=== PATIENT | female | born 1995 | race Caucasian/White ===

== ENCOUNTER 2018-10-06 08:08 | Inpatient (IN) ==
[2018-10-06] MEDS ORDERED: Mag Hydrox/Al Hydrox/Simeth 30 ML UDC PO PRN (08:18)
[2018-10-06] MEDS ORDERED: MOM Conc 10 ML UD.LIQ PO PRN (08:18)
[2018-10-06] MEDS ORDERED: *HR* LORazepam 1 MG TABLET PO PRN (08:18)
[2018-10-06] MEDS ORDERED: Ibuprofen 400 MG TABLET PO PRN (08:18)
[2018-10-06] MEDS ORDERED: Haloperidol Lactate 5 MG/ML VIAL IM PRN (08:18)
[2018-10-06] MEDS ORDERED: *HR* LORazepam 2 MG/ML VIAL IM PRN (08:18)
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
[2018-10-06] MEDS: Lurasidone 20 MG TABLET PO SCH (17:05)
--- NOTE | 2018-10-07 11:38 | Psychiatry Progress Note ---
Date of Encounter: 10/07/18 Time of Encounter: 11:36 Subjective Interval history: Patient reports that his mood was a little shaky last night. He said that he is worried about going back to his mother's house. He also continues to be upset when his ex contact him. He denies suicidal ideation but is still hopeless at times. Is tolerating the medications. Is attending groups. Review of Systems Psychiatric: Reports: depression, abnormal sleep pattern, anhedonia, hopelessness, mood swings. Denies: anxiety, suicidal ideation, change in appetite, homicidal ideation, auditory hallucinations, visual hallucinations, confusion, memory loss, difficulty concentrating, irritability, panic attacks Results - Vital Signs Vital Signs: Temp Pulse Resp BP Pulse Ox 98.1 F 95 18 126/78 95 10/07/18 09:00 10/07/18 09:00 10/07/18 09:00 10/07/18 09:00 10/07/18 09:00 Assessment and Plan (1) Bipolar disorder current episode depressed Current visit: Yes Status: Acute Plan: Continue hospitalization, Close observation, Suicide Precautions per unit protocol, Encourage participation in unit milieu, Group Therapy, Monitor sleep, Monitor appetite Additional Plan: Current medications. Consider increase to 2 to tomorrow. Encourage continued group attendance. Therapist working on outpatient placement. Risks, benefits, side effects, alternatives discussed w/pt: Yes Patient agreeable to treatment: Yes Qualifiers: Current episode severity: severe Psychotic features: without psychotic features Qualified Code(s): F31.4 - Bipolar disorder, current episode depressed, severe, without psychotic features Consult Discharge Plan - Plan Referrals: En Reinoso [facility] [Outside] - 10/27/18 1:30 pm (Your appointment with your counselor Magdalene Coon has been cancelled per your request - please contact the office at the number above as soon as possible after you know your work schedule to reschedule this appointment. You have an appointment scheduled with Rodrigo Campbell on FridayOctober 27 at 1:30 PM for Medication Management. ) Psychiatry Exam - Constitutional Vitals: Temp Pulse Resp BP Pulse Ox 98.1 F 95 18 126/78 95 10/07/18 09:00 10/07/18 09:00 10/07/18 09:00 10/07/18 09:00 10/07/18 09:00 General appearance: age & developmentally appropriate - Musculoskeletal Gait: normal Station: relaxed Strength & Tone: normal for patient - Psychiatric Patient Orientation: Yes Person, Yes Time, Yes Place Level of alertness: Alert Behavior: calm, cooperative Psychomotor activity: Normal Eye Contact: Maintains Eye Contact Mood Description: Depressed Patient description of mood: "down" Affect description: congruent with mood Speech Volume: Normal Speech pattern: normal rate, normal rhythm, normal tone, fluent, spontaneous Language & Vocabulary: consistent with education Thought Process: Linear, Goal Oriented Thought Content: No Suicidal ideation, No Homicidal ideation, No Overt delusions Perceptual Disturbances: No Auditory hallucinations, No Visual hallucinations Attention Span Ability: Capable of Focused Attention Memory Description: Grossly Intact Patient Reliability: Reliable Historian Fund of knowledge: Yes abstraction ability, Yes aware of current events Intelligence Estimate: Average Judgment: Fair Insight: Partial
[2018-10-07] MEDS: hydrOXYzine pamoate 25 MG CAPSULE PO PRN (14:32)
[2018-10-07] MEDS: Lurasidone 20 MG TABLET PO SCH (17:08)
[2018-10-07] MEDS: traZODone 50 MG TABLET PO PRN (21:44)
--- NOTE | 2018-10-08 07:23 | Psychiatry Progress Note ---
Date of Encounter: 10/08/18 Time of Encounter: 07:21 Subjective Interval history: Patient continues to report depression. He said that he got very anxious yesterday after another call with his ex and needed anxiety medications. He reports that he still feels hopeless and worries that if he were back at home that he might do something to harm himself. He is open to going up on his Latuda. Decreased interest and anhedonia. Review of Systems Cardiovascular: Denies: chest pain, palpitations, dyspnea on exertion Respiratory: Denies: cough, dyspnea, wheezes Psychiatric: Reports: depression, abnormal sleep pattern, suicidal ideation, anhedonia, hopelessness, mood swings. Denies: anxiety, change in appetite, homicidal ideation, auditory hallucinations, visual hallucinations, confusion, memory loss, difficulty concentrating, irritability, panic attacks Results - Vital Signs Vital Signs: Temp Pulse Resp BP Pulse Ox 98.2 F 99 14 117/79 100 10/07/18 21:00 10/07/18 21:00 10/07/18 21:00 10/07/18 21:00 10/07/18 21:00 Assessment and Plan (1) Bipolar disorder current episode depressed Current visit: Yes Status: Acute Plan: Continue hospitalization, Suicide Precautions per unit protocol, Encourage participation in unit milieu, Group Therapy, Monitor sleep, Monitor appetite Additional Plan: Increase Latuda to 40 mg to address depression and mood lability. Continue group attendance. Linked patient with outpatient services. Patient is willing to sign in as a voluntary patient. Risks, benefits, side effects, alternatives discussed w/pt: Yes Patient agreeable to treatment: Yes Qualifiers: Current episode severity: severe Psychotic features: without psychotic features Qualified Code(s): F31.4 - Bipolar disorder, current episode depressed, severe, without psychotic features Consult Discharge Plan - Plan Referrals: En Reinoso [facility] [Outside] - 10/27/18 1:30 pm (Your appointment with your counselor Magdalene Coon has been cancelled per your request - please contact the office at the number above as soon as possible after you know your work schedule to reschedule this appointment. You have an appointment scheduled with Rodrigo Campbell on FridayOctober 27 at 1:30 PM for Medication Management. ) Psychiatry Exam - Constitutional Vitals: Temp Pulse Resp BP Pulse Ox 98.2 F 99 14 117/79 100 10/07/18 21:00 10/07/18 21:00 10/07/18 21:00 10/07/18 21:00 10/07/18 21:00 General appearance: age & developmentally appropriate, disheveled, obese - Musculoskeletal Gait: slow Station: slouched Strength & Tone: normal for patient - Psychiatric Patient Orientation: Yes Person, Yes Time, Yes Place Level of alertness: Alert Behavior: distractible Psychomotor activity: Slowed Eye Contact: Fleeting Contact Mood Description: Depressed Patient description of mood: "anxious" Affect description: dysphoric Speech Volume: Soft/Quiet Speech pattern: slowed Language & Vocabulary: consistent with education Thought Process: Linear, Goal Oriented Thought Content: Yes Suicidal ideation (if were home) Perceptual Disturbances: No Auditory hallucinations, No Visual hallucinations Attention Span Ability: Capable of Focused Attention Memory Description: Grossly Intact Patient Reliability: Reliable Historian Fund of knowledge: Yes abstraction ability, Yes aware of current events Intelligence Estimate: Average Judgment: Limited Insight: Partial
[2018-10-08] MEDS: hydrOXYzine pamoate 25 MG CAPSULE PO PRN (16:11)
[2018-10-08] MEDS: Lurasidone 20 MG TABLET PO SCH (17:33)
[2018-10-08] MEDS: traZODone 50 MG TABLET PO PRN (21:11)
--- NOTE | 2018-10-09 09:13 | Psychiatry Progress Note ---
Date of Encounter: 10/09/18 Time of Encounter: 09:11 Subjective Interval history: Patient tolerated increase in latuda. Has had some diarrhea but does not think it is related as it has been going on since he first arrived on the unit. Reports no suicidal ideation. Is more future oriented toward wanting to move forward with his life. He interacts with patients on the unit. no Psychosis. Review of Systems Constitutional: Denies: fever Neurological: Denies: headache Psychiatric: Reports: depression, anhedonia. Denies: anxiety, change in appetite, homicidal ideation, auditory hallucinations, visual hallucinations, confusion, memory loss, difficulty concentrating, irritability, panic attacks Results - Vital Signs Vital Signs: Temp Pulse Resp BP Pulse Ox 97.5 F L 104 18 114/78 100 10/08/18 21:00 10/08/18 21:00 10/08/18 21:00 10/08/18 21:00 10/08/18 21:00 Assessment and Plan (1) Bipolar disorder current episode depressed Current visit: Yes Status: Acute Plan: Continue hospitalization, Close observation, Suicide Precautions per unit protocol, Encourage participation in unit milieu, Group Therapy, Monitor sleep, Monitor appetite Additional Plan: Continue latuda. Continue groups. Therapist working on outpatient appointments. Risks, benefits, side effects, alternatives discussed w/pt: Yes Patient agreeable to treatment: Yes Qualifiers: Current episode severity: severe Psychotic features: without psychotic features Qualified Code(s): F31.4 - Bipolar disorder, current episode depressed, severe, without psychotic features Consult Discharge Plan - Plan Referrals: En Reinoso [facility] [Outside] - 10/27/18 1:30 pm (Your appointment with your counselor Magdalene Mackenzie has been cancelled per your request - please contact the office at the number above as soon as possible after you know your work schedule to reschedule this appointment. You have an appointment scheduled with Rodrigo Campbell on FridayOctober 27 at 1:30 PM for Medication Management. ) Psychiatry Exam - Constitutional Vitals: Temp Pulse Resp BP Pulse Ox 97.5 F L 104 18 114/78 100 10/08/18 21:00 10/08/18 21:00 10/08/18 21:00 10/08/18 21:00 10/08/18 21:00 General appearance: age & developmentally appropriate - Musculoskeletal Gait: normal Station: relaxed Strength & Tone: normal for patient - Psychiatric Patient Orientation: Yes Person, Yes Time, Yes Place Level of alertness: Alert Behavior: calm, cooperative Psychomotor activity: Normal Eye Contact: Maintains Eye Contact Mood Description: Depressed Affect description: congruent with mood, constricted Speech Volume: Normal Speech pattern: normal rate, normal rhythm, normal tone, fluent, spontaneous Language & Vocabulary: consistent with education Thought Process: Linear, Goal Oriented Thought Content: No Suicidal ideation, No Homicidal ideation, No Overt delusions Perceptual Disturbances: No Auditory hallucinations, No Visual hallucinations Attention Span Ability: Capable of Focused Attention Memory Description: Grossly Intact Patient Reliability: Reliable Historian Fund of knowledge: Yes abstraction ability, Yes aware of current events Intelligence Estimate: Average Judgment: Fair Insight: Partial
[2018-10-09] MEDS: Lurasidone 20 MG TABLET PO SCH (17:15)
[2018-10-10 09:00] VITALS: BP 113/79
--- NOTE | 2018-10-10 09:31 | Discharge Summary ---
Date of Encounter: 10/10/18 Time of Encounter: 09:29 Diagnosis - Discharge Diagnosis (1) Bipolar disorder current episode depressed Status: Acute Qualifiers: Current episode severity: severe Psychotic features: without psychotic features Qualified Code(s): F31.4 - Bipolar disorder, current episode depressed, severe, without psychotic features Medications - Discharge Medications Prescriptions: hydrOXYzine pamoate [HydrOXYzine Pamoate] 25 mg PO TID PRN #90 capsule PRN Reason: Anxiety Lurasidone [Latuda] 40 mg PO 1700 #30 tablet traZODone [TraZODone] 50 mg PO HS PRN #30 tablet PRN Reason: Insomnia Lurasidone [Latuda] 40 mg PO 1700 #30 tablet 10/10/18 [Rx] hydrOXYzine pamoate [HydrOXYzine Pamoate] 25 mg PO TID PRN #90 capsule 10/10/18 [Rx] traZODone [TraZODone] 50 mg PO HS PRN #30 tablet 10/10/18 [Rx] Allergy/AdvReac Type Severity Reaction Status Date / Time acetaminophen [From [facility]] Allergy Difficulty Verified 10/06/18 21:28 Breathing hydrocodone [From [facility]] Allergy "STOP Verified 10/06/18 21:28 BREATHING" Penicillins AdvReac Vomiting Verified 10/06/18 21:28 Provider Date of admission: 10/06/18 08:08 Primary care physician: PCP NONE Discharging clinician: Cindy Dorman Psychiatry Exam - Constitutional Vitals: Temp Pulse Resp BP Pulse Ox 98.3 F 96 20 113/79 96 10/10/18 08:53 10/10/18 08:53 10/10/18 08:53 10/10/18 08:53 10/10/18 08:53 General appearance: age & developmentally appropriate, well-groomed, well- nourished - Musculoskeletal Gait: normal Station: relaxed Strength & Tone: normal for patient - Psychiatric Patient Orientation: Yes Person, Yes Time, Yes Place Level of alertness: Alert Behavior: calm, cooperative Psychomotor activity: Normal Eye Contact: Maintains Eye Contact Mood Description: Euthymic/stable Affect description: congruent with mood, full range Speech Volume: Normal Speech pattern: normal rate, normal rhythm, normal tone, fluent, spontaneous Language & Vocabulary: consistent with education Thought Process: Linear, Goal Oriented Thought Content: No Suicidal ideation, No Homicidal ideation, No Overt delusions Perceptual Disturbances: No Auditory hallucinations, No Visual hallucinations Attention Span Ability: Capable of Focused Attention Memory Description: Grossly Intact Patient Reliability: Reliable Historian Fund of knowledge: Yes abstraction ability, Yes aware of current events Intelligence Estimate: Average Judgment: Good Insight: Full Hospital Course Hospital course: Pt is a 23 year old Who was admitted for depression and suicidal ideations. She has a history of manic symptoms. She had previously done well on what to do so this was restarted. We also used Vistaril for anxiety and trazodone for insomnia.Patient was educated of diagnosis and the risk-benefit side effects of this alternative treatment options and was monitored for responsiveness and side effects. Mood anxiety sleep and appetite interest improved as did future orientation. Self-harm thoughts subsided, thinking cleared, psychosis resolved, and mood stabilized. Patient was able to attend both individual and group therapy sessions as well as meet with the psychiatrist daily and urged to discuss any medication or treatment issues or other concerns. The patient was educated primarily by verbal means about their diagnosis and manifestations in their life. The option for treatment including group and individual therapy programming was offered to the patient in addition to the use of medications with all their potential risks, benefits, and side effects as well as the risks of not taking medication and non-adhereance were discussed with the patient at length. The patient was given the opportunity to ask questions and was noted to participate in the treatment in the planning process. The patient felt ready and eager to be discharged from the inpatient psychiatric unit to continue on with treatment as an outpatient. The patient agreed that is they were safe for this disposition. The patient was considered to be able to participate in informed consent and decision making with respect to medical, legal, and financial issues of the time of discharge. At the time of discharge the patient adamantly denied any concerns for lethality including suicidal or homicidal thoughts ideations or plans and was future oriented toward ongoing mental health care, medical follow-up and sobriety. Time spent discussing smoking cessation with patient: 3 to 10 minutes Does patient wish to continue nicotine replacement upon disc: No (n/a) - Time Spent with Patient Total time spent providing and/or coordinating discharge services: Less than 30 minutes Specific discharge activities: Interval history reviewed. Available labs reviewed . Psychotherapy provided. Patient had an opportunity to ask questions and address concerns. Patient was in agreement with the treatment plan. The risks benefits and side effects of medications were discussed with the patient, including alternatives and treatment. The patient was educated on the abstaining from any alcohol or illicit substances, following up with all scheduled appointments, and taking all medications as prescribed. Assessment and Plan - Patient/Caregiver Discharge Instructions Activity: resume usual activities as tolerated Diet: regular diet Additional Instructions: Continue current medications. Follow up with outpatient mental health. Encourage continued therapy in a group or individual setting. The patient was discharged to home. - Follow up Plan Follow up with: En Reinoso [facility], [place] [Outside] - 10/27/18 1:30 pm (Your appointment with your counselor Magdalene Mackenzie has been cancelled per your request - please contact the office at the number above as soon as possible after you know your work schedule to reschedule this appointment. You have an appointment scheduled with Rodrigo Campbell on FridayOctober 27 at 1:30 PM for Medication Management. ) Functional capacity at discharge: independent ambulation Overall status at discharge: Stable Disposition: Home, Self-Care Quality - Multiple Antipsychotics Patient discharged on 2 or more antipsychotic medications: No Procedures - Procedures Procedures: Medication Management, Crisis Stabilization, Supportive Therapy, Group Therapy, Psychoeducational Therapy
[2018-10-10] MEDS: hydrOXYzine pamoate 25 MG CAPSULE PO PRN (10:57)
== END 2018-10-10 11:20 | disposition home or self-care (01) | DRG 753 ==
LOC: SUATTDRO 08:08 → EDSEX 08:08 → 1ANU 08:08
PROVIDERS: ADMIT Psychiatry & Neurology Psychiatry; ATTEND Psychiatry & Neurology Psychiatry